=== PATIENT | female | born 1985 | race Two or more races ===

== ENCOUNTER 2020-05-01 17:55 | Emergency (ER) | payer OTHER ==
[2020-05-01] MEDS ORDERED: HYDROmorphone 0.5 MG/0.5 ML Syringe IVPUSH ONE (18:04)
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
[2020-05-01] MEDS ORDERED: Ondansetron 4 MG/2 ML SDV IVPUSH ONE (19:46)
[2020-05-01] MEDS ORDERED: Ketorolac 30 MG/ML SDV IVPUSH ONE (19:46)
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
== END 2020-05-01 21:08 | disposition home or self-care (01) ==
LOC: JP.ED 17:55
DX: M54.6 Pain in thoracic spine (principal); M79.622 Pain in left upper arm; R51 Headache; M54.2 Cervicalgia; V69.9XXA Occupant (driver) (passenger) of heavy transport vehicle injured in unspecified traffic accident, initial encounter
CPT/HCPCS: 70450; 72125; 72128; 73010; 73060; 96374; 96375; 99285; J1170; J1885; J2405